=== PATIENT | male | born 1950 | race Caucasian/White ===

== ENCOUNTER 2016-11-26 20:33 | Emergency (ER) | payer MEDICARE, BC ==
--- NOTE | 2016-11-26 21:46 | ERNOTE ---
ER Male HPI Date of Service: 11/26/16 Stated Complaint: RETENSION ONLY HAS ONE KIDNEY Time Seen by Provider: 11/26/16 21:30 Source: patient Exam Limitations: no limitations Immunizations: IMMUNIZATION HX Immunizations Up to Date Yes History of Influenza Vaccine Yes Hx Pneumococcal Vaccination Yes Allergies/Adverse Reactions: Allergies No Known Drug Allergies Allergy (Verified 11/26/16 21:51) Home Medications: HOME MEDICATIONS Allopurinol [Zyloprim] 300 mg PO DAILY 11/26/16 [Last Taken Unknown] Atorvastatin Calcium [Lipitor] 40 mg PO HS 11/26/16 [Last Taken Unknown] Losartan Potassium [Cozaar] 100 mg PO DAILY 11/26/16 [Last Taken Unknown] Meloxicam [Mobic] 15 mg PO DAILY 11/26/16 [Last Taken Unknown] Pantoprazole Sodium [Protonix] 40 mg PO DAILY 11/26/16 [Last Taken Unknown] Propranolol HCl 80 mg PO DAILY 11/26/16 [Last Taken Unknown] - History of Present Illness Narrative: S/p left rotator cuff surgery this morning and has not urinated since the surgery. Complaints of pressure at the bladder. No complaints of fevers, chills or back pain. There was urinary retention previously after back surgery. Date (Duration): 11/26/16 Timing: Present: constant Quality: Present: moderate Onset Location: Present: suprapubic Radiation: Present: none Activities at Onset: Present: none Prior Abdominal Problems: Present: none Modifying Factors - (Improves): Present: other - nothing Modifying Factors - (Worsens): Present: other - attempting to urinate results in dribbling Associated Symptoms: Present: denies symptoms Prior Treatment: Present: treated by physician Review of Systems - Review of Systems Constitutional: Present: no symptoms reported EYE: Present: no symptoms reported ENT: Present: no symptoms reported Respiratory: Present: no symptoms reported Cardiology: Present: no symptoms reported Gastrointestinal/Abdominal: Present: no symptoms reported Genitourinary: Present: See HPI Musculoskeletal: Present: no symptoms reported Skin: Present: no symptoms reported Neurological: Present: no symptoms reported Endocrine: Present: no symptoms reported Hematologic/Lymphatic: Present: no symptoms reported Psych: Present: no symptoms reported - Patient's Past Medical History Patient History - Medical: Arthritis Patient History - Cardiac/Respiratory: Hypertension, Hyperlipidemia Patient History - Cancer: Kidney Patient History - Surgical Procedures: Back Surgery - Social History Living Situations: home Smoking Status: Former smoker Have you smoked in the past 12 months: No Alcohol Use: none Drug Use: none - Immunizations Immunizations Up to Date: Yes Hx Pneumococcal Vaccination: Yes History of Influenza Vaccine: Yes Physical Exam - Physical Exam General Appearance: Present: no apparent distress Eye Exam: Normal inspection: bilateral Ears, Nose, Throat: Present: normal ENT inspection Neck: Present: normal inspection Respiratory: Present: no respiratory distress Cardiovascular/Chest: Present: regular rate, rhythm Gastrointestinal/Abdominal: Present: nontender Back Exam: Present: normal inspection Extremity Exam: Present: other - left shoulder immobilizer is in place Neurological Exam: Present: 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 - Vital Signs Vital Signs: Vital Signs 11/26/16 21:07 Temperature 37.2 C Pulse Rate 91 Respiratory 18 Rate Blood Pressure 162/118 O2 Sat by Pulse 95 Oximetry - Progress/Reassessment Chief Complaint: Genitourinary Problem Progress:: Improved Progress Note-Subjective: 11/26/16 21:45 Perales cath placed. 11/26/16 22:19 The patient plans to see his physician next week. Departure Clinical Impression: Urinary retention - Departure Disposition: Home self-care Condition: Good Instructions: Acute Urinary Retention, Male Print Language: Maori Additional Instructions: Follow up with urology. Referrals: Israel Lozano DO [Primary Care Provider] - Ralph Mack MD [Associate] -
[2016-11-26 22:02] LABS: Urine Bilirubin Negative (NEGATIVE); Urine Blood Negative /ul (NEGATIVE); Urine Ketone Negative (NEGATIVE); Urine Nitrite Negative (NEGATIVE); Urine Protein Negative (NEGATIVE); Urine Urobilinogen Normal (NORMAL)
[2016-11-26 22:06] LABS: Anion Gap 13.8 mmol/L (6.8-13.8); BUN/Creatinine Ratio 18.4 (9.0-21.6); Calcium * 9.5 mg/dL (7.9-10.9); Carbon Dioxide 24.6 mmol/L (24-32.6); Estimated Creat Clear 59.9; Potassium 4.4 mmol/L (3.4-4.6)
[2016-11-26 22:11] LABS: Urine Appearance Clear; Urine Bacteria None Seen; Urine Color Yellow; Urine Hyaline Cast 0-5 /LPF; Urine RBC None Seen /hpf (0-5); Urine WBC None Seen /hpf (0-5)
[2016-11-26 22:57] VITALS: BP 133/73
== END 2016-11-26 22:57 | disposition home or self-care (01) ==
LOC: ER 20:33
PROC: 0T9B70Z Drainage of Bladder with Drainage Device, Via Natural or Artificial Opening (ICD-10-PCS; principal; 2016-11-26)
DX: R33.9 Retention of urine, unspecified (principal); Z87.891 Personal history of nicotine dependence; Z85.528 Personal history of other malignant neoplasm of kidney; I10 Essential (primary) hypertension; E78.5 Hyperlipidemia, unspecified